=== PATIENT | male | born 1980 | race Caucasian/White ===

== ENCOUNTER 2021-10-30 06:50 | Day surgery (SDC) | payer OTHER, BC ==
[~2021-10-30 06:50] MED LIST: Lactated Ringers 1,000 ML IV SCH
--- NOTE | 2021-10-30 08:12 | PCM.PREANE ---
Preanesthetic Assessment - Procedure Proposed Procedure: EGD, Colonoscopy - Anesthesia/Transfusion/Family Hx Anesthesia History: Prior Anesthesia Without Reaction Other Type of Anesthesia Reaction Comment: states was slow to come out of anesthesia after gallbladder surgery Family History of Anesthesia Reaction: No Transfusion History: No Prior Transfusion(s) - Review of Systems General: No Symptoms Pulmonary: No Symptoms (Quit smoking x15yrs, MASOUD uses CPAP) Cardiovascular: No Symptoms (HTN, HLD) Gastrointestinal: No Symptoms (Occas HB take PRN tums) Neurological: No Symptoms Other: Reports: None - Physical Assessment NPO Status Date: 10/29/21 NPO Status Time: 20:00 Vital Signs: Last Vital Signs Temp 97.3 F 10/30/21 07:47 Pulse 83 10/30/21 07:47 Resp 16 10/30/21 07:47 BP 141/90 H 10/30/21 07:47 Pulse Ox 100 10/30/21 07:47 Height: 6 ft Weight: 103.419 kg ASA Class: 2 Mental Status: Alert & Oriented x3 Airway Class: Mallampati = 2 Dentition: Reports: Normal Dentition (Permanent retainers top and bottom) Thyro-Mental Finger Breadths: 3 Mouth Opening Finger Breadths: 3 ROM/Head Extension: Full Lungs: Clear to Auscultation, Normal Respiratory Effort Cardiovascular: Regular Rate, Regular Rhythm - Lab Values: Laboratory Last Values SARS-CoV-2 RNA (DIONE) NEGATIVE (NEGATIVE) 10/30/21 06:50 - Allergies Allergies/Adverse Reactions: Allergies Allergy/AdvReac Type Severity Reaction Status Date / Time No Known Allergies Allergy Verified 10/24/21 08:10 - Acknowledgements Anesthesia Type Planned: General Anesthesia Pt an Appropriate Candidate for the Planned Anesthesia: Yes Alternatives and Risks of Anesthesia Discussed w Pt/Guardian: Yes Pt/Guardian Understands and Agrees with Anesthesia Plan: Yes PreAnesthesia Questionnaire HEENT History: Reports: Other (See Below) Other HEENT History: upper and lower permanent dental retainers Cardiovascular History: Reports: High Cholesterol, Hypertension Respiratory History: Reports: Sleep Apnea Other Respiratory History: uses CPAP Gastrointestinal History: Reports: Hemorrhoids Other Gastrointestinal History: occasional heartburn Genitourinary History: Reports: None Musculoskeletal History: Reports: Back Pain, Chronic Neurological History: Reports: None Psychiatric History: Reports: Anxiety Endocrine/Metabolic History: Reports: Obesity/BMI 30+ Hematologic History: Reports: None Immunologic History: Reports: None Oncologic (Cancer) History: Reports: Basal Cell Carcinoma Dermatologic History: Reports: Eczema - Past Surgical History Head Surgeries/Procedures: Reports: None HEENT Surgical History: Reports: None Cardiovascular Surgical History: Reports: None Respiratory Surgical History: Reports: None GI Surgical History: Reports: Cholecystectomy Male Surgical History: Reports: None Endocrine Surgical History: Reports: None Neurological Surgical History: Reports: None Musculoskeletal Surgical History: Reports: None Oncologic Surgical History: Reports: None Dermatological Surgical History: Reports: Skin Biopsy - SUBSTANCE USE Tobacco Use Status *Q: Former Tobacco User Tobacco Use Within Last Twelve Months: No - HOME MEDS Home Medications: Home Meds Cholecalciferol (Vitamin D3) [Vitamin D3] 5,000 units PO DAILY 10/24/21 [History] Fish Oil/[place]-3 Fatty Acids [Fish Oil 1,000 MG] 1 tab PO BID 10/24/21 [History] atorvaSTATin [Lipitor] 20 mg PO DAILY 10/24/21 [History] buPROPion HCL [Bupropion Xl] 150 mg PO DAILY 10/24/21 [History] lisinopriL [Lisinopril] 40 mg PO DAILY 10/24/21 [History] - CURRENT (IN HOUSE) MEDS Current Meds: Current Medications Lactated Ringer's (Ringers, Lactated) 1,000 mls @ 125 mls/hr IV ASDIRECTED [facility] Last Admin: 10/30/21 07:58 Dose: 125 mls/hr Documented by:
[2021-10-30] MEDS ORDERED: fentaNYL 100 MCG/2 ML SDV ONE ×2 (08:38→09:24)
[2021-10-30] MEDS ORDERED: Propofol 200 MG/20 ML SDV ONE (08:38)
[2021-10-30] MEDS ORDERED: Lidocaine 2% 5 ML SDV ONE (08:54)
--- NOTE | 2021-10-30 09:35 | PCM.POSTAN ---
POST ANESTHESIA ASSESSMENT - MENTAL STATUS Mental Status: Alert, Oriented - VITAL SIGNS Vital Signs: Last Vital Signs Temp 97.3 F 10/30/21 07:47 Pulse 83 10/30/21 07:47 Resp 16 10/30/21 07:47 BP 141/90 H 10/30/21 07:47 Pulse Ox 100 10/30/21 07:47 - RESPIRATORY Respiratory Status: Respiratory Rate WNL, Airway Patent, O2 Saturation Stable - CARDIOVASCULAR CV Status: Pulse Rate WNL, Blood Pressure Stable - GASTROINTESTINAL GI Status: No Symptoms - PAIN Pain Score: 0 - POST OP HYDRATION Hydration Status: Adequate & Stable
--- NOTE | 2021-10-30 09:35 | PCM.OPNOTE ---
- General Post-Op/Procedure Note Date of Surgery/Procedure: 10/30/21 Operative Procedure(s): egd w bx. colonoscopy w bx Findings: see [id number] Pre Op Diagnosis: brbpr Post-Op Diagnosis: Same Anesthesia Technique: Moderate Sedation Primary Surgeon: Ovidio Steel Pathology: egd bx colon random bx Complications: None Condition: Good
--- NOTE | 2021-10-30 10:00 | PCM48HPAN ---
Post Anesthesia Note - EVALUATION WITHIN 48HRS OF ANESTHETIC Vital Signs in Normal Range: Yes Patient Participated in Evaluation: Yes Respiratory Function Stable: Yes Airway Patent: Yes Cardiovascular Function Stable: Yes Hydration Status Stable: Yes Pain Control Satisfactory: Yes Nausea and Vomiting Control Satisfactory: Yes Mental Status Recovered: Yes Vital Signs: Last Vital Signs Temp 98.4 F 10/30/21 09:30 Pulse 62 10/30/21 09:41 Resp 14 10/30/21 09:41 BP 108/67 10/30/21 09:41 Pulse Ox 92 L 10/30/21 09:41 - COMMENTS/OBSERVATIONS Free Text/Narrative:: Pt doing well post-op. VSS. No apparent anesthetic complications. Dr. Dov White
--- NOTE | 2021-10-30 11:45 | OR ---
SURGEON: Ovidio Steel MD DATE OF PROCEDURE: 10/30/2021 PREOPERATIVE DIAGNOSIS: Bright red blood per rectum. POSTOPERATIVE DIAGNOSIS: Bright red blood per rectum. PROCEDURES PERFORMED: 1. Esophagogastroduodenoscopy with biopsy. 2. Colonoscopy with biopsy. DESCRIPTION OF PROCEDURE: EGD: The patient was taken to the endoscopy room, and with the BANDAGE WINDING MACHINE OPERATOR, Diprivan was administered. A well-lubricated EGD scope was gently inserted through the oropharynx, down the esophagus, passing through the gastroesophageal junction, into the stomach. The mucosa was examined upon the passage. Any etiology will be noted. Once in the stomach, we continued to advance to the distal antrum, passed through the pylorus into the second portion of the duodenum. Again, the mucosa was examined for any abnormality and etiology. The scope was then retrieved back to the stomach and then retroflexed to look at the fundus of the stomach. If a biopsy was indicated, we will biopsy the antrum, body, and gastroesophageal junction. The air will be sucked out while the scope is retrieved to reduce the patient's discomfort. The patient tolerated the procedure well. There were no intraoperative complications. Dr. Steel was present through the whole procedure. Prior to surgery, a time-out had been called, the patient identified, procedure identified and antibiotic administered. Colonoscopy with biopsy: The patient was taken to the endoscopy room. A time out was called, patient identified, and procedure identified. Diprivan was then administrated. Patient went from awake to sleep, hearing doctor talking or door closing is normal. Perineum inspection and digital examination were then performed. A well-lubricated colonoscope was gently inserted through the rectum, advanced past the rectosigmoid junction, the descending colon, splenic flexure, transverse colon, hepatic flexure, ascending colon, arrived to the cecum. Cecum was identified as dictated in the finding. Then the scope was carefully withdrawn while attention was paid to the mucosal surface for any abnormality. Air will be sucked out during the scope withdrawal. At the rectum, retroflexed to examine any rectal diseases, fistula or hemorrhoids. During mucosal examination, abnormality or polyp was noted; picture taken and biopsy performed. Patient tolerated procedure well. There were no intraoperative complications, and Dr. Steel was present throughout the whole procedure. FINDINGS: 1. EGD findings: Esophagitis and gastritis. 2. Colonoscopy findings: Internal and external hemorrhoids. EGD FINDINGS IN DETAIL: 1. Patient is easily sedated with BANDAGE WINDING MACHINE OPERATOR and Diprivan, patient is soundly snoring. 2. Oropharynx and proximal esophagus are free of disease, stricture, or inflammation. Distal esophagus at GE junction at 40 shows flame-like salmon-colored change and with some area looked like it is healed ulcer. We will prescribe PPI for patient 40 mg daily for three months. Probably would benefit from repeat EGD in six months. Stomach rugae are normal in appearance and large amount of bile in the stomach, and antrum looks fine. Duodenum looks grossly normal. Retroflexed look at the fundus of the stomach, there is an area looked like it is healed ulcer. It is not in the usual place that have gastritis, but it was inflamed. Biopsy done at antrum, body, GE junction at 40 and sucked out the gas while scope pulling out. In particular one of the area like an esophageal ulcer was biopsied. During the whole study, there is bile in the stomach, but there is no food particle or blood. COLONOSCOPY FINDINGS IN DETAIL: 1. Patient is easily sedated with BANDAGE WINDING MACHINE OPERATOR and Diprivan, patient is soundly snoring. 2. Patient has mild to moderate external hemorrhoids and internal hemorrhoids. Bowel prep is average with some liquid stool, no semi-formed stool, no stool ball. Colon rather straightforward. Cecum indicated by ileocecal fold, one-to-one indentation, appendiceal orifice and ScopeGuide is pointing south. Mucosa examined upon scope pulling out. Patient does not have diverticulosis, polyp, mass, growth, inflammation, stricture, AV malformation, bleeding, none of those. Random biopsy done for pain. Patient would benefit from repeat colonoscopy in 10 years from today or if clinically indicated otherwise or if the biopsy pathology report indicated otherwise. SERGEY / DANIEL /[id number]
== END 2021-10-30 10:05 | disposition home or self-care (01) ==
LOC: MW.SDS 06:50
PROVIDERS: ATTEND Surgery
DX: K62.5 Hemorrhage of anus and rectum (principal); K29.70 Gastritis, unspecified, without bleeding; K64.4 Residual hemorrhoidal skin tags; K64.8 Other hemorrhoids; K92.2 Gastrointestinal hemorrhage, unspecified; E78.00 Pure hypercholesterolemia, unspecified; I10 Essential (primary) hypertension; E66.9 Obesity, unspecified; Z01.812 Encounter for preprocedural laboratory examination; Z20.822 Contact with and (suspected) exposure to COVID-19; Z90.49 Acquired absence of other specified parts of digestive tract; Z79.899 Other long term (current) drug therapy; Z87.891 Personal history of nicotine dependence; Z68.30 Body mass index [BMI] 30.0-30.9, adult
CPT/HCPCS: 43239; 45380; 87635; J2704; J3010; J7120; 00813; 88305; U0002